=== PATIENT | female | born 1980 | race Caucasian/White ===

== ENCOUNTER 2024-04-21 08:07 | Outpatient (CLI) | payer OTHER, SELFPAY | END 2024-04-21 08:08 | disposition home or self-care (01) | PROVIDERS: PCP Family Medicine; Visit Provider Family Medicine | DX: E03.8 Other specified hypothyroidism (principal); Z11.59 Encounter for screening for other viral diseases; Z13.228 Encounter for screening for other metabolic disorders; Z13.220 Encounter for screening for lipoid disorders | CPT/HCPCS: 80053; 80061; 84443; 86803 ==

== ENCOUNTER 2025-01-08 12:49 | Outpatient (CLI) | payer OTHER, SELFPAY ==
--- NOTE | 2025-01-08 13:00 | CRLHL7_ITS ---
For Patients: As a result of the Century Cures Act, medical imaging exams and procedure reports are released immediately into your electronic medical record. You may view this report before your referring provider. If you have questions, please contact your health care provider. CLINICAL HISTORY: PELVIC AND PERINEAL PAIN TECHNIQUE: 2D garzon scale ultrasound. In addition color Doppler and spectral Doppler analysis was performed of the pelvis using a transabdominal and transvaginal approach. FINDINGS: The uterus is absent. The left ovary measures 2.8 x 1.4 x 1.9 cm in size and the right ovary measures 4.0 x 2.1 x 2.8 cm. The ovaries demonstrate normal arterial and venous blood flow on color Doppler and spectral Doppler analysis. There are no suspicious fluid collections within the cul-de-sac. There is a complex right ovarian cyst present measuring 2.2 x 1.8 x 1.8 cm with solid nodular areas associated with the posterolateral wall. Blood flow is present within the adjacent ovarian tissue. There is a separate smaller cyst present measuring 1 cm. IMPRESSION: Right ovarian Unilocular cyst with solid areas/papillary projections associated with the posterolateral wall, without blood flow within these areas. MRI recommended for further evaluation. Dictated by Haresh Love MD @ 01/10/2025 8:23:42 AM (Electronically Signed)
== END 2025-01-08 12:50 | disposition home or self-care (01) ==
LOC: US 12:50
PROVIDERS: PCP Family Medicine; Visit Provider Physician Assistant Medical
DX: R10.2 Pelvic and perineal pain (principal); N83.201 Unspecified ovarian cyst, right side
CPT/HCPCS: 76830; 76856; 93976

== ENCOUNTER 2025-01-22 08:12 | Outpatient (CLI) | payer OTHER, SELFPAY ==
--- NOTE | 2025-01-22 08:15 | CRLHL7_ITS ---
For Patients: As a result of the Century Cures Act, medical imaging exams and procedure reports are released immediately into your electronic medical record. You may view this report before your referring provider. If you have questions, please contact your health care provider. INDICATION: Follow-up right ovarian cyst TECHNIQUE: 1.5 T MRI performed with pre and postcontrast T1 weighted imaging; T2 weighted imaging. 15 mL Dotarem IV COMPARISON: Pelvic ultrasound 01/08/2025 FINDINGS: Uterus: Prior hysterectomy. Two T2 intermediate cystic lesions along the left vaginal cuff measuring 1.2 x 2 cm in aggregate (07/24) are indeterminate, possibly post surgical change. Ovaries/adnexa: Right ovarian cyst measuring 2.2 x 1.6 x 1.9 cm (cc by AP by transverse), similar in size compared to prior ultrasound. No nodular enhancement or papillary projections are noted on MRI. The left ovary is unremarkable. No adnexal masses bilaterally. Remaining pelvis: Limited evaluation of the abdominal viscera demonstrates normal appearance of the visualized bowel and urinary bladder. Vasculature: The iliac arteries are patent. Lymph nodes: No enlarged lymph nodes within the pelvis. Peritoneal space: No free fluid within the pelvis. Musculoskeletal: Bone marrow signal is within normal limits. IMPRESSION: 1. Simple appearing right ovarian cyst measuring similar in size compared to prior ultrasound. No suspicious nodular enhancement or papillary projections are appreciated (O-RADS 2). Consider short interval follow-up ultrasound to ensure resolution. 2. Cystic lesions along the left vaginal cuff are indeterminate and possibly postsurgical change. Attention on follow-up if performed Dictated by Pita Shrestha MD @ 01/22/2025 2:30:06 PM (Electronically Signed)
== END 2025-01-22 08:13 | disposition home or self-care (01) ==
LOC: MRI 08:13
PROVIDERS: PCP Family Medicine; Visit Provider Physician Assistant Medical
DX: N83.201 Unspecified ovarian cyst, right side (principal); N83.291 Other ovarian cyst, right side; N89.8 Other specified noninflammatory disorders of vagina
CPT/HCPCS: 72197; A9575